=== PATIENT | female | born 1960 | race Caucasian/White ===

== ENCOUNTER 2016-11-12 13:58 | Emergency (ER) | payer BC ==
[~2016-11-12 13:58] MED LIST: AMBIEN10 MG PO; ASPIRIN EC81 MG PO; CYCLOBENZAPRINE10 MG PO; FLEXERIL10 MG PO; HYDROCODONE-APA1 TAB PO; HYZAAR 100-12.51 TAB PO; MOBIC7.5 MG PO; NASACORT AQ16.5 GM NASAL; NEXIUM20 MG PO; NORCO 10/325 TA1 TA1 PO; PRAVACHOL40 MG PO; PROZAC10 MG PO; TOPROL XL50 MG PO; VENTOLIN HFA18 GM INH; VITAMIN D2000 UNIT PO; ZEGERID OTC 201 EACH PO; ZYRTEC10 MG PO
== END 2016-11-12 16:00 | disposition home or self-care (01) ==
LOC: D.ER 13:58
DX: S61.451A Open bite of right hand, initial encounter (principal); W54.0XXA Bitten by dog, initial encounter; Y93.89 Activity, other specified; Y92.89 Other specified places as the place of occurrence of the external cause; S69.91XA Unspecified injury of right wrist, hand and finger(s), initial encounter; M79.641 Pain in right hand; F41.9 Anxiety disorder, unspecified; J45.909 Unspecified asthma, uncomplicated

== ENCOUNTER → 2017-02-02 14:28 | Outpatient (CLI) | payer BC ==
[2014-11-13 11:36] VITALS: BMI 42.2
== END | disposition home or self-care (01) ==
LOC: D.MAMMO 11:45
DX: Z12.31 Encounter for screening mammogram for malignant neoplasm of breast (principal)

== ENCOUNTER → 2017-09-29 07:34 | Outpatient (CLI) | payer BC ==
[2014-11-13 11:36] VITALS: BMI 42.2
== END | disposition home or self-care (01) ==
LOC: D.MRI 07:34
DX: M54.5 Low back pain (principal)

== ENCOUNTER → 2018-07-05 11:18 | Outpatient (CLI) | payer BC, MEDICAID ==
[2014-11-13 11:36] VITALS: BMI 42.2
--- NOTE | ~2018-07-05 | ST ---
PATIENT:NYASIA GREEN MEDICAL RECORD: [id number] SEX: F LOCATION:[facility] ORDER #: ADMISSION DATE: 07/05/18 AGE OF PATIENT: 58 REFERRING PHYSICIAN: INTERPRETING PHYSICIAN: NICKIE HENDRICKSON MD DATE OF SERVICE: 07/05/2018 PROCEDURE: Nuclear stress test. INDICATION: Angina, abnormal ECG, hypertension, and hyperlipidemia. She was exercised on standard Lexiscan protocol with 33 mCi of sestamibi injected at peak stress and 11 mCi were used previously for rest images. FINDINGS: Gated SPECT reveals preserved ejection fraction of 72% with good wall motioning, thickening, and brightening throughout all segments. SPECT IMAGING: Cardiolite was used as myocardial perfusion agent. There is reversibility anteriorly. This includes the basal, mid apical, and anterior segments. The degree of reversibility is mild to moderate. The amount of myocardium involved is moderate. OVERALL IMPRESSION: 1. This is an abnormal nuclear stress test with reversible ischemia anteriorly. 2. Gated SPECT reveals a preserved ejection fraction of 72%. In this patient with ongoing symptomatology, the current scan does suggest the presence of hemodynamically significant coronary artery disease. We will proceed with coronary angiography as a followup study. TRANSINT:[id number] Voice Confirmation ID: [id number] DOCUMENT ID: [id number] NICKIE HENDRICKSON MD CC: KATTY COLE DO [id number] DICTATION DATE: 07/06/18 1209 [employer] MANAGER: 07/06/[id number] DEP CLI 07/05/[address] [facility] [address] [place] [address]
== END | disposition home or self-care (01) ==
LOC: D.HCCARDIO 11:18
DX: I20.9 Angina pectoris, unspecified (principal)

== ENCOUNTER 2018-07-25 10:47 | Outpatient (CLI) | payer BC, MEDICAID ==
[~2018-07-25] VITALS: Ht 160 cm; Wt 107.7 kg
--- NOTE | ~2018-07-25 | HEMODYNAMI ---
PATIENT:NYASIA GREEN MEDICAL RECORD: [id number] : 64 LOCATION:[facility] ADMISSION DATE: 07/25/18 Generatedon:07/25/201813:22 Patient name: NYASIA GREEN Patient #: [id number] SSN: DO B: 1960 Date of study: 07/25/2018 Page: Of Hemodynamic Procedure Report Patient Data Patient Demographics Procedure consent was obtained First Name: NYASIA Gender: Female Last Name: PETER : 1960 Middle Initial: E Age: 58 year(s) Patient #: [id number] Race: Unknown Additional ID: [id number] Contact details Address: [address] [place] [address] [address] State: [place] City: [facility] Zip code: [address] Admission Admission Data Admission Date: 07/25/2018 Admission Time: 10:47 Procedure Procedure Types Cath Procedure Diagnostic Procedure LHC LHC w/Coronaries Procedure Description Procedure Date Procedure Date: 07/25/2018 Procedure Start Time: 13:10 Procedure End Time: 13:19 Procedure Staff Name Function Nando Miller MD Performing Physician Massiel Hancock RT Monitor Tanja Chapman RT Scrub Rakel Mcneil RN Nurse Procedure Data Cath Procedure Fluoroscopy Diagnostic fluoroscopy Total fluoroscopy Time: 2.2 time: 2.2 min min Diagnostic fluoroscopy Total fluoroscopy dose: 524 dose: 524 mGy mGy Contrast Material Contrast Material Type Amount (ml) Isovue 300 44 Entry Location Entry Primary Successful Side Size Upsize Upsize Entry Closure Harry ccessful Closure Location (Fr) 1 (Fr) 2 (Fr) Remarks Device Remarks Radial Right 6 Fr Mechanical artery Short Compression Estimated blood loss: 5 ml Diagnostic catheters Device Type Used For End Catheter Placement DIAGNOSTIC [place] 110cm 5 Multi-vessel Fr catheter ([id number]) Angiography Procedure Complications No complications Procedure Medications Medication Administration Route Dosage Oxygen etCO2 Nasal cannula 2 l/min Lidocaine 2% added to field 20 Heparin Flush Bag added to field 2 bags (1000units/500ml NS) 0.9% NaCl I.V. 100 ml/hr Radial Cocktail I.A. 1 syringe (Verapomil 2mg/Nitro 400mcg/Heparin 1500units) Zofran I.V. 4 mg Versed I.V. 2 mg Fentanyl I.V. 100 mcg Versed I.V. 2 mg Fentanyl I.V. 100 mcg Hemodynamics Rest Heart Rate: 77 (bpm) Pressure Samples Time Site Value (mmHg) Purpose Heart Use Rate(bpm) 13:16 LV 118/7,12 Snapshot 82 Gradients Valve Time Site Site Mean SEP/DFP Peak To Heart Use 1 2 (mmHg) (sec/min) Peak Rate (mmHg) (bpm) Aortic 13:17 LV AO 82 Snapshots Pre Cath Intra NCS Post Cath Vital Signs Time Heart Resp SPO2 etCO2 NIBP (mmHg) Rhythm Pain Sedation Rate (ipm) (%) (mmHg) Status Level (bpm) 13:01:09 75 18 96 39.7 125/81(101) NSR 0 (11) 10(A) , No pain 13:05:21 74 16 97 38.2 128/83(114) NSR 0 (11) 10(A) , No pain 13:09:35 75 14 94 18.7 126/81(108) NSR 0 (11) 10(A) , No pain 13:13:47 83 13 94 20.8 113/80(96) NSR 0 (11) 10(A) , No pain 13:17:57 81 13 94 27.7 113/70(94) NSR 0 (11) 10(A) , No pain Medications Time Medication Route Dose Verified Delivered Reason Notes Effectiveness by by 13:03:05 Oxygen etCO2 2 l/min Nando Ellington used for Nasal St Prince Mcneil RN procedure cannula 13:03:12 Lidocaine 2% added 20ml Nando Collier for local to vial [facility] anesthetic field MD MORENO 13:03:18 Heparin Flush added 2 bags Nando Collier used for Bag to [facility] procedure (1000units/500ml field MD MORENO NS) 13:03:26 0.9% NaCl I.V. 100 Nando Garciaie Per ml/hr St Prince Mcneil RN physician 13:03:37 Zofran I.V. 4 mg Nando Ellington Per premed ication Angela Cmneil RN physician for n/v MD reactions that pt states she has to sedation med. 13:06:56 Versed I.V. 2 mg Nando Ellington for sedation St Prnice Mcneil RN, MD 13:07:03 Fentanyl I.V. 100 mcg Nando Ellington for sedation St Prince Mcenil RN, MD 13:12:09 Radial Cocktail I.A. 1 Nando Collier for (Verapomil syringe St Prince Miller vasodilation 2mg/Nitro MD MORENO 400mcg/Heparin 1500units) 13:12:18 Versed I.V. 2 mg Nando Collier for sedation St Prince Miller MD, MD 13:12:23 Fentanyl I.V. 100 mcg Nando Collier for sedation St Prince Miller MD, MD Procedure Log Time Note 12:42:06 Informed consent obtained and on chart 12:42:12 Diagnostic Cath Status : Elective 12:42:39 Rakel Mcneil RN sent for patient. Start room use. 12:42:40 Time tracking: Regular hours (M-F 7:00 - 5:00) 12:42:44 Plan of Care:Hemodynamics will remain stable., Cardiac rhythm will remain stable., Comfort level will be maintained., Respiratory function will remain adequate., Patient/ family verbilizes understanding of procedure., Procedure tolerated without complication., Recovers from procedure without complications.. 12:44:54 Patient received from Pre/Post Procedure Room to CCL 2 Alert and oriented. Tansferred to table in Supine position. 12:44:55 Warm blankets applied, and stephan hugger turned on for patient comfort. 12:44:57 Correct patient and procedure confirmed by team. 12:44:59 ECG and BP/O2 sat monitors applied to patient. 13:00:06 Vital chart was started 13:00:07 Baseline sample Acquired. 13:00:11 Rhythm: sinus rhythm 13:00:13 Full Disclosure recording started 13:00:17 H&P Date Dictated: 07/25/2018 Within 30 days and on chart., H&P Addendum completed by physician on day of procedure. (MUST COMPLETE FOR ALL OUTPATIENTS). 13:00:18 Pre-procedure instructions explained to patient. 13:00:19 Pre-op teaching completed and patient verbalized understanding. 13:00:20 Family in waiting room. 13:00:22 Patient NPO since Midnight. 13:00:23 Is the patient allergic to Iodine/contrast media? No. 13:00:25 Was the patient premedicated? No 13:00:26 Is patient on blood thinner?No 13:00:28 Patient diabetic? No. 13:00:38 Previous problem with sedation/anesthesia? Yes nausea vomiting 13:00:40 Snore? Yes 13:00:41 Sleep apnea? Yes 13:00:42 Deviated septum? No 13:00:42 Opens mouth fully? Yes 13:00:43 Sticks out tongue? Yes 13:00:45 Airway obstruction? Yes asthma 13:00:48 Dentures? No ? 13:00:51 Pre procedure: right dorsailis pedis pulse 2+ Normal; easily identifiable; not easily obliterated 13:00:53 Pre procedure: left dorsailis pedis pulse 2+ Normal; easily identifiable; not easily obliterated 13:00:55 Patient pain scale 0/10 ?. 13:01:00 IV patent on arrival in left forearm with 0.9% NaCl at [facility]. 13:01:03 Lab results completed and on chart. 13:01:09 Right Radial & Right Groin area was prepped with chlora-prep and draped in sterile fashion 13:01:10 Alarms reviewed by R. N. 13:01:10 Sharps counted by scrub and verified by R.N. 13:03:05 Oxygen 2 l/min etCO2 Nasal cannula was administered by Rakel Mcneil RN; used for procedure; 13:03:12 Lidocaine 2% 20ml vial added to field was administered by Nando Miller MD; for local anesthetic; 13:03:18 Heparin Flush Bag (1000units/500ml NS) 2 bags added to field was administered by Nando Miller MD; used for procedure; 13::26 0.9% NaCl 100 ml/hr I.V. was administered by Rakel Mcneil RN; Per physician; 13:03:37 Zofran 4 mg I.V. was administered by Rakel Mcneil RN; Per physician; premedication for n/v reactions that pt states she has to sedation med. 13:05:34 Zero performed for pressure channel P1 13::43 Physician arrived 13:05:44 --------ALL STOP TIME OUT------ ::44 Final Timeout: patient, procedure, and site verified with staff and physician. All members of the team are in agreement. 13:05:47 Right Radial & Right Groin site verified by team. 13:05:50 Physical assessment completed. ASA score P 2 - A patient with mild systemic disease as per Nando Miller MD. 13:05:54 Sedation plan: IV Moderate Sedation Medication:Versed, Fentanyl 13:06:20 Use device set Radial Dx or PCI 13:06:21 ACIST Syringe (85987) opened to sterile field. 13:06:21 Medline Cath Pack ([id number]) opened to sterile field. 13:06:22 Bag Decanter (2002S) opened to sterile field. 13:06:22 DIAGNOSTIC WIRE .035 260cm J wire (417537) opened to sterile field. 13:06:23 ACIST Hand Control (16100) opened to sterile field. 13:06:23 ACIST Manifold (70030) opened to sterile field. 13:06:24 Tegaderm 4 x 4 (1626W) opened to sterile field. 13:06:25 SHEATH 6FR Slender (39-2087) opened to sterile field. 13:06:56 Versed 2 mg I.V. was administered by Rakel Mcneil RN; for sedation; 13:07:03 Fentanyl 100 mcg I.V. was administered by Rakel Mcneil RN; for sedation; 13:09:49 Procedure started. 13:10:04 Local anesthetic to right radial artery with Lidocaine 2% by Nando Miller MD.INITIAL ACCESS ONLY 13:11:31 A 6 Fr Short sheath was inserted into the Right Radial artery 13:12:09 Radial Cocktail (Verapomil 2mg/Nitro 400mcg/Heparin 1500units) 1 syringe I.A. was administered by Nando Miller MD; for vasodilation; 13:12:18 Versed 2 mg I.V. was administered by Nando Miller MD; for sedation; 13:12:23 Fentanyl 100 mcg I.V. was administered by Nando Miller MD; for sedation; 13:12:24 A DIAGNOSTIC [place] 110cm 5 Fr catheter (633666) was advanced over the wire and used for Multi-vessel Angiography. 13:13:46 RCA angiography performed. 13:13:50 Injector settings: Ml/sec: 3, Volume: 6, 13:14:16 LCA angiography performed. 13:14:20 Injector settings: Ml/sec: 3, Volume: 6, 13:16:42 LV hemodynamics recorded. 13:16:43 LV gram done using HAWKINS 13:16:45 Injector settings: Ml/sec: 5, Volume: 15, 13:16:52 EF : 55 % 13:17:08 Catheter removed. 13:17:17 TR BAND Standard ([id number]) opened to sterile field. 13:17:27 Sheath removed intact; hemostasis achieved with Mechanical Compression to the Right Radial artery. 13:17:29 Procedure ended.(Physican Out) 13:17:58 Fluoroscopy time 02.20 minutes. 13:18:03 Fluoroscopy dose: 524 mGy 13:18:03 Flurop Dose total: 524 13:18:08 Contrast amount:Isovue 300 44ml. 13:18:09 Sharps counted by scrub and verified by R.N. 13:18:11 TR band inflated with 11cc of air. 13:18:12 Insertion/operative site no bleeding no hematoma. 13:18:17 Post right radial artery:stable 13:18:58 Post Procedure Pulses reassessed and unchanged 13:19:00 Post procedure rhythm: unchanged. 13:19:08 Estimated blood loss: 5 ml 13:19:10 Post procedure instruction explained to patient.Patient verbalizes understanding. 13:19:10 Patient needs reinforcement of post procedure teaching. 13:19:16 Procedure and supply charges have been captured, reviewed, submitted and are correct. 13:19:20 Procedure Complication : No complications 13:19:23 Vital chart was stopped 13:19:23 See physician's report for complete and final results. 13:19:32 Report given to Pre/Post Procedure Room. 13:19:35 Patient transfered to Pre/Post Procedure Room with Stretcher. 13:19:37 Procedure ended. 13:19:37 Full Disclosure recording stopped 13:19:41 End room use (Document Last) Device Usage Item Name Manufacture Quantity Catalog Hospital Part Current Minimal Lot# / Number Charge Number Stock Stock Serial# Code ACIST Acist 1 73631 [id number] 635391 522192 20 Syringe Redbeacon (83113) Systems Inc Medline Medline 1 [id number] 268869 87407 643359 5 Cath Pack ([id number]) Bag Microtek 1 337244 49767 540822 5 Decanter Medical Inc. (2001S) DIAGNOSTIC [place] 1 001645 120405 169253 601071 30 WIRE .035 260cm J wire (769872) ACIST Hand Acist 1 47234 988206 602442 315120 5 Control Medical (18919) Systems Inc ACIST Acist 1 88413 001852 551436 214893 5 Manifold Medical (30732) Systems Inc Tegaderm 4 3M 1 1626W 808182 109275 287955 5 x 4 (1626W) SHEATH 6FR Terumo 1 [id number] 780229 082113 336224 5 Slender (80-1060) DIAGNOSTIC Terumo 1 40-0822 206806 897935 432874 5 [place] 110cm 5 Fr catheter (621267) TR BAND Terumo 1 [id number] 902763 494733 881843 40 Standard ([id number]) Signature Audit [place] Time Signature Unsigned Intra-Procedure 07/25/2018 Massiel Hancock 1:22:55 PM RT(R) Signatures Monitor : Massiel Hancock RT Signature : Date : Time : [id number] [place] [address]
[2018-07-25] MEDS ORDERED: LIPITOR80 MG PO (11:01)
[2018-07-25] MEDS ORDERED: LOSARTAN-HCTZ1 EAC2 PO (11:02)
[2018-07-25] MEDS ORDERED: K-DUR20 MEQ PO (11:02)
[2018-07-25] MEDS ORDERED: CYMBALTA60 MG PO (11:03)
[2018-07-25] MEDS ORDERED: RYTHMOL SR225 MG PO (11:04)
[2018-07-25] MEDS ORDERED: ATIVAN1 MG PO (11:04)
[2018-07-25] MEDS ORDERED: NASACORT10.8 ML NASAL (11:06)
[2018-07-25] MEDS ORDERED: XYZAL PO (11:06)
[2018-07-25 11:13] VITALS: BP 139/85; Ht 160 cm; Wt 107.7 kg
[2018-07-25 11:29] LABS: BASOPHILS 0.8 % (0-2); EOSINOPHILS 1.9 % (0-7); HEMATOCRIT 37.3 % (36.0-48.0); HEMOGLOBIN 12.6 g/dL (12-16); IMMATURE GRANULOCYTES 0.2 % (0-5); LYMPHOCYTES 30.7 % (15-50); MCH 30.9 pg (26.0-34.0); MCHC 33.8 g/dL (31.0-37.0); MCV 91.4 fL (80.0-100.0); MEAN PLATELET VOLUME 10.8 fL (7.4-10.4); MONOCYTES 6.4 % (2-11); PLATELET COUNT 265 10x3/uL (130-400); RBC 4.08 10x6/uL (4.00-5.40); RDW 12.9 % (11.5-14.5); WBC 6.2 10x3/uL (4.8-10.8)
[2018-07-25 11:44] LABS: CARBON DIOXIDE 28.7 mmol/L (21.0-32.0); CREATININE - SERUM 0.9 mg/dL (0.6-1.3); POTASSIUM - SERUM 3.7 mmol/L (3.5-5.1)
--- NOTE | 2018-07-25 13:45 | NUR ---
ROOM AIR WITH NO RESP DISTRESS. RIGHT WRIST TR BAND CDI, NO BLEEDING OR HEMATOMA NOTED. C/O PAIN TO RIGHT WRIST FROM TR BAND. NORCO 10 GIVEN PER ORDERS. VSS. CALL LIGHT WITHIN REACH.
--- NOTE | 2018-07-25 14:27 | NUR ---
3CC OF AIR REMOVED FROM TR BAND WITH NO BLEEDING NOTED. VSS. WILL CONTINUE TO MONITOR.
--- NOTE | 2018-07-25 14:40 | NUR ---
3CC OF AIR REMOVED FROM TR BAND WITH NO BLEEDING NOTED.
--- NOTE | 2018-07-25 15:10 | NUR ---
LEFT PIV D/C'D WITH CATHETER INTACT, BAND AID TO SITE. UP TO BEDSIDE TO GET DRESSED.
--- NOTE | 2018-07-25 15:20 | NUR ---
REMAINING AIR REMOVED FROM TR BAND WITH NO BLEEDING NOTED. DRESSING PLACED TO SITE. DISCHARGE INSTRUCTIONS GIVEN, VERBALIZED UNDERSTANDING.
--- NOTE | 2018-07-25 15:30 | NUR ---
TAKEN OUT VIA WHEELCHAIR BY CATH DIRECTOR OF ENTERPRISE APPLICATIONS. LEFT FACILITY WITH FAMILY AND ALL PERSONAL BELONGINGS.
--- NOTE | 2018-07-28 13:30 | OP ---
PATIENT NAME: NYASIA GREEN MEDICAL RECORD: [id number] :64 LOCATION:[facility] ADMISSION DATE: SURGEON: ANNE-MARIE NUÑEZ MD DATE OF OPERATION: 07/25/2018 PROCEDURES: Left heart catheterization, selective coronary angiography, right radial approach. CATHETERS USED: Include radial sheath, [place] catheter, and pigtail catheter. The procedure was well tolerated. The patient was returned to the damico. Sheath was removed. Adequate hemostasis was obtained. TR band placed. FINDINGS: Left ventriculography in 30-degree HAWKINS view: Normal wall motion and normal systolic function. CORONARY ANATOMY: LEFT MAIN: Left main is free of disease. LAD: Free of disease in the diagonal system. CIRCUMFLEX: Free of disease in the marginal system. RIGHT CORONARY ARTERY: Dominant artery, gives rise to PDA, free of disease. IMPRESSION: Normal LV systolic function. Normal coronary anatomy. TRANSINT:[id number] Voice Confirmation ID: [id number] DOCUMENT ID: [id number] ANNE-MARIE NUÑEZ MD at 1330 CC: [id number] DICTATION DATE: 07/25/18 1321 GRIZZLYMAN: 07/25/18 1427 DEP CLI 07/25/18 [facility] [address] [place] [address]
== END 2018-07-25 15:30 | disposition home or self-care (01) ==
LOC: D.CATH 10:47
PROVIDERS: Internal Medicine Interventional Cardiology
DX: I20.9 Angina pectoris, unspecified (principal); R94.30 Abnormal result of cardiovascular function study, unspecified

== ENCOUNTER 2020-10-03 05:08 | Day surgery (SDC) | payer BC ==
[~2020-10-03] VITALS: Ht 160 cm; Wt 115.7 kg
[~2020-10-03 05:08] MED LIST changes: +ATIVAN1 MG PO; +CYMBALTA60 MG PO; +K-DUR20 MEQ PO; +LIPITOR80 MG PO; +LOSARTAN-HCTZ1 EAC2 PO; +NASACORT10.8 ML NASAL; +OLMESARTAN-HCT1 EAC1 PO; +PACERONE200 MG PO; +PROTONIX40 MG PO; +RYTHMOL SR225 MG PO; +SYNTHROID100 MCG PO; +XANAX1 MG PO; +XARELTO15 MG PO; +XYZAL PO; +ZOFRAN4 MG PO
[2020-10-03 05:44] LABS: BASOPHILS 0.6 % (0-2); EOSINOPHILS 0.7 % (0-7); HEMATOCRIT 36.3 % (36.0-48.0); IMMATURE GRANULOCYTES 0.1 % (0-5); LYMPHOCYTE ABS# 2.93 10x3/uL (1.18-3.74); MCH 29.3 pg (26.0-34.0); MCHC 33.1 g/dL (31.0-37.0); MCV 88.8 fL (80.0-100.0); MEAN PLATELET VOLUME 10.3 fL (7.4-10.4); MONOCYTES 8.8 % (2-11); NEUTROPHIL ABS# 3.18 10x3/uL (1.56-6.13); NEUTROPHILS 46.8 % (40-80); PLATELET COUNT 286 10x3/uL (130-400); RBC 4.09 10x6/uL (4.00-5.40); RDW 13.4 % (11.5-14.5); WBC 6.8 10x3/uL (4.8-10.8)
[2020-10-03 06:43] LABS: ANION GAP 15.4 mmol/L (8-16); CALCIUM 9.6 mg/dL (8.5-10.1); CARBON DIOXIDE 26.6 mmol/L (21.0-32.0); CREATININE - SERUM 1.2 mg/dL (0.6-1.3)
[2020-10-03 06:51] VITALS: BP 114/57; Ht 160 cm; Wt 115.7 kg
[2020-10-03] MEDS ORDERED: HYDROCODON-ACE1 EAC7 PO (10:01)
--- NOTE | 2020-10-03 10:09 | NUR ---
DR FRYE AT BEDSIDE - REPORTED TO HIM THAT LEFT FOOT IS CONSIDERABLY COOLER THAN RIGHT, WITH CAP REFILL > [address] FRYE, NO ORDERS RECEIVED.
--- NOTE | 2020-10-03 15:05 | NUR ---
STATES NAUSEA RESOLVED AND FEELS READY TO GO HOME. IV D/C'D WITH CANNULA INTACT, PRESSURE HELD AND DRSG PLACED. DISCHARGE INSTRUCTIONS GIVEN AND BOTH PT AND VERBALIZED AN UNDERSTANDING. BOOT PLACED ON FOOT AND NERVE BLOCK REMAINS EFFECTIVE
== END 2020-10-03 12:00 | disposition home or self-care (01) ==
LOC: D.OPS 05:08
PROVIDERS: Anesthesiology; ATTEND Podiatrist Foot & Ankle Surgery
DX: M25.572 Pain in left ankle and joints of left foot (principal); M76.822 Posterior tibial tendinitis, left leg; J45.909 Unspecified asthma, uncomplicated